=== PATIENT | male | born 1940 | race Caucasian/White ===

== ENCOUNTER → 2017-10-16 13:01 | Outpatient (CLI) | payer MEDICARE, OTHER, SELFPAY ==
[2017-10-16 13:50] LABS: Add Manual Diff / Slide Review NO; Basophils Percent Auto 0.5 % (0-2); Eosinophils Percent Auto 3.4 % (2-4); Hemoglobin 13.9 g/dL (13.5-17.5); Lymphocytes Percent Auto 33.1 % (25-40); Mean Corpuscular HGB Conc 33.8 % (30-36); Mean Corpuscular Hemoglobin 31.9 PG (26-34); Mean Corpuscular Volume 94.3 fL (80-100); Monocytes Percent Auto 7.9 % (3-14); Neutrophils Absolute Auto 3000 /uL (3000-5900); Neutrophils Percent Auto 55.1 % (50-75); Platelet Count 202 X10^3/uL (150-400); Red Blood Cell Count 4.35 X10^6/uL (4.5-5.9); Red Cell Distribution Width 13.9 % (11.6-14.8); White Blood Cell Count 5.5 X10^3/uL (4.5-11.0)
[2017-10-16 14:03] LABS: BUN Creatinine Ratio 22.2 (6-22); Calcium 9.5 mg/dL (8.4-10.2); Estimated Glomerular Filt Rate > 60.0 mL/min (>60); Glucose 79 mg/dL (80-110); HEMOLYSIS < 15 (0-50); Potassium 4.7 mmol/L (3.4-5.1); Sodium 142 mmol/L (137-145)
== END ==
PROVIDERS: PCP Internal Medicine; Visit Provider Orthopaedic Surgery
DX: M25.561 Pain in right knee (principal); Z96.651 Presence of right artificial knee joint
CPT/HCPCS: 36415; 80048; 85025

== ENCOUNTER 2017-11-04 13:31 | Day surgery (SDC) | payer MEDICARE, OTHER, SELFPAY ==
[2017-10-25 14:06] VITALS: BMI 36.1
[2017-11-04] VITALS (17 sets, daily range): BP systolic 108–162; BP diastolic 61–98; PULSE 89–142; RESP 12–20; TEMP 35.9–36.7; O2SAT 91–96; BMI 36.1
[2017-11-04] MEDS: LACTATED RINGERS 1,000 ML 42 ML IV ×2 (14:05→15:58)
--- NOTE | 2017-11-04 15:02 | PM.PREOP ---
Pre-operative Note Interval Note Pre-op Check: History & Physical Reviewed by Physician and Changes
[2017-11-04] MEDS: CEFAZOLIN 2 GM/100 ML FROZ.PIGGY IV ×2 (15:07→22:59)
--- NOTE | 2017-11-04 15:46 | SUR.OPER ---
Supine on padded OR bed. Pillow under head, arms secured on padded armboards <90 degree abduction. Safety belt across torso. Non-operative leg secured with tape over blanket over lower leg. Operative leg on padded OR Bed. F
[2017-11-04] MEDS: BUPIVACAINE 0.5% W/ EPI (PF) 30 ML VIAL INJ (15:59)
[2017-11-04] MEDS: fentaNYL 100 MCG/2 ML INJ 50 MCG IV ×2 (16:25→16:41)
[2017-11-04] MEDS: hydrOXYzine 50 MG/ML INJ 25 MG IM (16:27)
--- NOTE | 2017-11-04 16:27 | PM.OP.1 ---
Operative Date/Time/Diagnoses - Date of procedure: 11/04/17 Time of procedure: 16:27 Pre-op diagnosis: Patellar maltracking, right total knee Post-op diagnosis: same Procedure & Clinicians Procedure: Proximal patellar realignment Same procedure as scheduled: Yes Indications: The patient is a 77-year-old gentleman who previously has undergone a right total knee replacement. He has had ongoing discomfort and is unsatisfied with the outcome of the knee replacement. Radiographs reveal excessive lateral tilt of the patella. He has requested open lateral release and medial reefing after extensive discussion of the risks benefits and alternatives. He also has failed all non operative management attempts. Risks discussed included but were not limited to: Failure to improve, infection, nerve damage, stiffness, deep venous thrombosis, pulmonary embolism, stroke, myocardial infarction, permanent paralysis and . Surgeon: Jp Noland Photogrammetric Technician: Marlena Vega Click Yes if Unassisted: No Anesthesia Type: General and Local Operative Notes Findings: Improvement in patellar tracking after the above-noted procedure. Closure Type: primary Specimen(s): other (Fluid was sent for culture and Gram stain.) Implants & Drains: None. Estimated Blood Loss (mL): 10 Blood products transfused: none Tourniquet time (min): 19 Procedure in detail: The patient was seen in the preoperative area were reconfirmed the right knee was the operative site and this was marked with my initials. He received preoperative antibiotics and was taken to the operating room and placed on the operating room table in a supine position where he underwent a general anesthetic. A tourniquet was placed about the proximal right thigh and the right leg was prepared from the toes to the tourniquet with ChloraPrep in the usual fashion and draped through sterile drapes. The leg was elevated and exsanguinated with an Esmarch bandage and the tourniquet inflated to 250 mm of mercury. Pre-existing total knee incision was reopened. This was carried to the capsule which was incised in a medial parapatellar arthrotomy. Previous sutures were removed when encountered. Approximately 5 mL of clear straw-colored fluid was extracted from the knee and sent for culture and Gram stain. The total knee replacement was inspected and appeared to be in good condition with no surface wear and no evidence of loosening. The lateral patellar retinaculum was released with the Bovie electrocautery from the joint line to the superior pole of the patella with care being taken not to extend this into the vastus lateralis. The vastus medialis obliquus was then advanced approximately a cm over the quadriceps tendon and patella and sutured into position with #1 Tycron. This appeared to improve the patellar tilt. Patellar tracking was normal. The remainder of the medial parapatellar arthrotomy was closed in standard fashion with #1 Tycron. The subcutaneous tissues were then closed with interrupted 3 O Vicryl. The skin was closed with a running 3 over the lock suture and Steri-Strips. A total of 30 mL of 0.5% Marcaine with epinephrine was injected into the capsule and skin for postoperative pain control. Dressings of an Aquacel Ag dressing and an Bo wrap were applied. Patient was allowed to awaken from anesthesia and transported to the recovery room in good condition having tolerated the procedure well. The tourniquet was deflated during closure and hemostasis obtained with electrocautery. Total tourniquet time was 19 min. Complications: none Condition: stable Disposition: PACU Plan for aftercare: The patient will be allowed to weightbear as tolerated and do quadriceps and hamstrings rehab with physical therapy. He will be discharged later today provided pain control is satisfactory.
[2017-11-04] MEDS: KETOROLAC 30 MG/ML VIAL IV (16:31)
--- NOTE | 2017-11-04 17:29 | SUR.PHASEI ---
Patient transported to room 204. Per Dr Noland, pt does not need telemetry monitoring while on inpatient floor. Kierra BARRIGA notified.
[2017-11-04] MEDS: HYDROCODONE/ACET 10/325 TABLET 2 TAB PO ×2 (18:16→21:18)
[2017-11-04] MEDS: HYDROMORPHONE 2 MG INJ 1 MG IV (18:59)
[2017-11-04] MEDS: ATORVASTATIN 20 MG TABLET 80 MG PO (21:17)
[2017-11-04] MEDS: TRAMADOL 50 MG TABLET PO (21:18)
[2017-11-04] MEDS: PRAMIPEXOLE 0.25 MG TABLET PO (21:18)
[2017-11-04] MEDS: ZOLPIDEM 5 MG TABLET 10 MG PO (21:18)
[2017-11-04] MEDS: clonazePAM 0.5 MG TABLET PO (21:18)
[2017-11-05 04:40] VITALS: BP 106/65; PULSE 71; RESP 16; TEMP 36.4; O2SAT 92
[2017-11-05] MEDS: HYDROCODONE/ACET 5/325 TABLET 1 TAB PO (04:52)
[2017-11-05] MEDS: CEFAZOLIN 2 GM/100 ML FROZ.PIGGY IV (06:40)
[2017-11-05 07:15] VITALS: BP 119/68; PULSE 66; RESP 17; TEMP 36.9; O2SAT 94
[2017-11-05] MEDS: TRAMADOL 50 MG TABLET PO (08:58)
[2017-11-05] MEDS: HYDROCODONE/ACET 10/325 TABLET 2 TAB PO ×2 (08:58→13:16)
[2017-11-05] MEDS: PREGABALIN 50 MG CAPSULE 100 MG PO (09:03)
[2017-11-05] MEDS: PROPRANOLOL ER 60 MG CAPSULE PO (09:03)
[2017-11-05] MEDS: CITALOPRAM 20 MG TABLET 40 MG PO (09:03)
[2017-11-05] MEDS: PRAMIPEXOLE 0.25 MG TABLET PO (09:03)
[2017-11-05] MEDS: CELECOXIB 200 MG CAPSULE PO (09:03)
--- NOTE | 2017-11-05 10:52 | PC.NURSE ---
Addendum entered by Aundrea Betancourt R.N. 11/05/17 14:24: pt just discharged to home. iv taken out and cath tip intact. out to car with cleaner and presser and to drive pt home. Original Note: Addendum entered by Aundrea Betancourt R.N. 11/05/17 13:32: Pt worked with p.t. and tolerated well, he was also able to tolerate doing stairs. He will be discharged home around 1400. Medicated with 2 [place] 10/325mg. Visiting with his now. Original Note: Pt medicated with his routine vicodin and tramadol. He will work with P.T. soon. Voided 275cc of yellow urine. He is comfortable at this time.
--- NOTE | 2017-11-05 14:15 | P.DS_ITS ---
History of Present Illness Date Patient Seen: 11/05/17 Time Patient Seen: 07:13 Chief complaint: *[id number] Narrative: POD #1 status post right proximal patellar realignment with Dr. Noland. He had increased pain yesterday that was not well controlled and stayed overnight. He is feeling much better this morning. No complaints. Discharge Providers Primary care physician: Alfredito Huggins MD Consults: 11/05/17 12:58 Consult to Physical Therapy Evaluate & Treat Comment: Physician Instructions: Evaluate and Treat Discharge provider: Bernice Sahu PA-C Summary Discharge Diagnosis: Status post right proximal patellar realignment Hospital Course: The patient admitted for proximal patellar realignment, and he consented to procedure. Hospital course unremarkable. On postop day 1. He is feeling well and wants go home. His pain was well controlled with Vicodin and tramadol. On day of discharge dressing was CDI, calves soft, compressible, and nontender bilaterally. Exam Vital Signs (past 8 hours): Vital Signs - 8 hr 3 11/05/17 07:15 Temperature 98.4 F Pulse Rate 66 Respiratory Rate 17 Blood Pressure 119/68 Pulse Oximetry 94 Pulse Oximetry 94 Oxygen Delivery Method Room Air Narrative Exam Narrative: Patient lying in bed in no acute distress. He is alert and oriented x3. Dressing on right knee is CDI. Bo wrap in place. Calves are soft, compressible, nontender bilaterally. Sensation intact to light touch throughout bilateral lower extremities. Pulses are symmetrical. Discharge Plan Discharge Plan Patient Disposition: Home, Self-Care Discharge comment: DC home this afternoon after physical therapy Discharge Med Rec/Prescriptions Prescriptions: Continue citalopram 20 MG tablet 40 mg PO QDAY Qty: 0 RF: 0 clonazepam 1 MG tablet 0.5 mg PO DAILY Qty: 0 RF: 0 hydrocodone-acetaminophen 10 MG/325 MG tablet 1 tab PO QID Qty: 0 RF: 0 tramadol 50 MG tablet 50 mg PO TID Qty: 0 RF: 0 propranolol 60 MG capsule,extended release 24 hr 60 mg PO QDAY Qty: 30 RF: 11 celecoxib [Celebrex] 200 mg Capsule 200 mg PO DAILY RF: 0 atorvastatin 80 mg Tablet 80 mg PO DAILY RF: 0 pramipexole 0.25 mg Tablet 0.25 mg PO BID RF: 0 rivaroxaban [Xarelto] 20 mg Tablet 20 mg PO QAM RF: 0 pregabalin [Lyrica] 100 MG capsule 100 mg PO DAILY RF: 0 zolpidem 12.5 mg PO BEDTIME RF: 0 Follow up/Referrals: Jp Noland MD [Physician] - (Please follow up in 10-14 days with PAAndra) Discharge Orders: Discharge (Order); Ordered 11/05/17 Ordered By: Bernice Sahu Provider Discharge Instructions Diet: Diet as Tolerated Activity: Quadriceps and hamstring strengthening with physical therapy Wound Care Report to your healthcare provider any signs of infection, such as:: chills, fever and increased pain Dressing: Please leave dressing in place until appointment Visit Report/Discharge Packet Stand Alone Forms: Surgery Discharge Discharge Data Primary Care Provider: Alfredito Huggins Attending Provider: Jp Noland
--- NOTE | 2017-11-05 15:19 | PT.IIE ---
Current Diagnoses Unspecified internal derangement of right knee (11/04/17) Presence of right artificial knee joint (11/04/17) Surgery Performed Operation Date: 11/04/17 15:15 Actual Procedures p Open Proximal Realignment of Right Patella(Right) - Jp Noland MD Surgical History (Last Updated 10/25/17 @ 14:29 by Jennifer Avila, RN) H/O hernia repair (Acute) H/O umbilical hernia repair (Acute) H/O vasectomy (Acute) History of inguinal hernia repair, bilateral (Acute) History of lumbar fusion (Acute) History of meniscectomy of left knee (Acute) History of tonsillectomy (Acute) Hx of total knee arthroplasty (Acute) S/P epidural steroid injection (Acute) Medical History (Last Updated 10/25/17 @ 14:29 by Jennifer Avila, RN) Cataract (lens) fragments in eye following cataract surgery, bilateral (Acute) Chronic migraine (Acute) DJD (degenerative joint disease), cervical (Acute) History of UTI (Acute) Panic attacks (Acute) Pectus excavatum (Acute) Personal history of cardiac arrhythmia (Acute) Right leg DVT (Acute) Shingles (Acute) Skin cancer (Acute) Physical Therapy Inpatient Evaluation/Re-Eval M1 PT/OT-IP Prior Functional Status Start: 11/05/17 15:10 Freq: NEEDED Status: Active Protocol: Document 11/05/17 13:30 RS (Rec: 11/05/17 15:18 RS [id number]) Medical Review Prior Functional Status Medical History Reviewed Yes Diet/Fluid Consistency Regular Communication no known deficits. Mobility and Gait independent without device, does have a cane, crutches, FWW, and 4WW at home if needed . Social History Household Members spouse Living Arrangements House Number of Floors (Floors) One Floor Number of Stairs To Enter/Railing? 4STE w/ bilat rails Home Environment Standard Height Toilet Walk in Shower Home Equipment Front Wheel Walker Four Wheel Walker Straight Cane Crutches Grab Bars In Shower Employment Status Retired M2 PT-IP Current Condition Start: 11/05/17 15:10 Freq: NEEDED Status: Active Protocol: Document 11/05/17 13:30 RS (Rec: 11/05/17 15:18 RS [id number]) Physical Therapy Current Condition Current Condition Evaluation Date 11/05/17 Treatment Diagnosis s/p surgical patella realignment Onset Date 11/04/17 Weight Bearing Status Weight Bearing Status Weight Bear as Tolerated M3 PT-IP Subjective Start: 11/05/17 15:10 Freq: NEEDED Status: Active Protocol: Document 11/05/17 13:30 RS (Rec: 11/05/17 15:18 RS [id number]) Subjective Physical Therapy Visit Type Type Initial Evaluation Visit Start Time 13:01 Visit Stop Time 13:30 Total Visit Minutes 29 Physical Therapy Visit Comments Patient Comments Pt reports doing well, excited to go home. Patient/Caregiver Goals go home today Therapy Pain Assessment Pain When Pain Assessed At Rest Pain Present Pain Present Denied Pain M4 PT-IP Mobility and Gait Start: 11/05/17 15:10 Freq: NEEDED Status: Active Protocol: Document 11/05/17 13:30 RS (Rec: 11/05/17 15:18 RS [id number]) PT-Bed Mobility Assessment Supine to Sit Supine to Sit Independent Sit to Supine Sit to Supine Independent Scooting Scooting to Edge of Bed Independent PT-Transfer Assessment Sit to and From Stand Sit to and from Stand Independent Use of Upper Extremities Equipment Transfer Assistive Device Front Wheeled Walker Transfers Transfer Destination Bed Chair Transfer Technique Stand Step Pivot Transfer Ability Level of Assist Independent Use of Upper Extremities Gait Assessment Gait Gait Assistance Required: Independent Distance (Feet) (feet) 100 Assistive Devices Assistive Device Front Wheeled Walker Gait Deviations General Gait Pattern Within Normal Limits Antalgic Factors Limiting Gait Function Factors Limiting Gait Function Limited Range of Motion Pain Stair Climbing Assessment Evaluation Level of Assist On Stairs Standby Assistance 1 Person Assistance Devices Stair Climbing Assistive Devices Front Wheel Walker Technique/Endurance Stair Climbing Direction Ascend and Descend Stair Climbing Technique Step to Step Number of Steps Climbed 4 Query Text: PT-Balance Assessment Sitting Balance and Reactions Static Sitting Balance Ability Normal Dynamic Sitting Balance Ability Normal Standing Balance and Reactions Static Standing Balance Ability Normal Dynamic Standing Balance Ability Normal Device Used FWW M5 PT-IP Objective Assessments Start: 11/05/17 15:10 Freq: NEEDED Status: Active Protocol: Document 11/05/17 13:30 RS (Rec: 11/05/17 15:18 RS [id number]) Orientation Orientation/Cognition Level of Alertness Alert Orientation Name Age Birthday Month Date Year Day of Week Place Situation Language Function Ability No Deficits Noted Safety Awareness Understands Safety Issues Memory Description No Deficits Noted Gross Range of Motion Upper Extremity ROM Assessment Within Functional Limits Strength Upper Extremity Strength Assessment Within Functional Limits M6 PT-IP Treatment Start: 11/05/17 15:10 Freq: NEEDED Status: Active Protocol: Document 11/05/17 13:30 RS (Rec: 11/05/17 15:18 RS [id number]) Physical Therapy Treatment Education Education Provided Precautions Weight Bearing Status Post-Op Packet Safety M7 PT-IP Assessment and Plan Start: 11/05/17 15:10 Freq: NEEDED Status: Active Protocol: Document 11/05/17 13:30 RS (Rec: 11/05/17 15:18 RS [id number]) PT Summary Assessment and Plan Potential Rehabilitation Potential Good Status of Condition at Evaluation Stable Summary Impairments ROM Strength Progress Towards Goals Safe For Discharge Assessment Summary Pt is modified independent with all mobility using a FWW. Pt is safe to discharge directly home, however, recommend pt participate in OPPT once ready. Pt in agreement with this plan. Goals Bed Mobility Goal Independent Transfer Goal Independent Front Wheeled Walker Gait Goal Independent Front Wheel Walker Gait Distance 100 Days to Meet Goals 1 Frequency of Treatment Frequency Of Treatment Once a Day Treatment Plan Other Recommendations and Next Treatment no further PT needed. Focus Recommendations To Nursing Amount of Assist Needed Independent Discharge Recommendations PT Discharge Recommendations Home with Assistance Outpatient PT Provider Visit Care Team Role Provider Type Alfredito Huggins MD Primary Care Provider Physician Specialty: Internal Medicine Jp Noland MD Attending Provider Physician Specialty: Orthopedic Surgery
== END 2017-11-05 14:23 | disposition home or self-care (01) ==
LOC: OR 13:32 → AC 13:34
PROVIDERS: PCP Internal Medicine; Visit Provider Orthopaedic Surgery
PROC: (CPT 27446; principal; 2017-11-04 15:15)
DX: M23.92 Unspecified internal derangement of left knee (principal); Z86.718 Personal history of other venous thrombosis and embolism; M19.91 Primary osteoarthritis, unspecified site; F41.9 Anxiety disorder, unspecified; I49.9 Cardiac arrhythmia, unspecified; E78.5 Hyperlipidemia, unspecified; I10 Essential (primary) hypertension; W18.30XA Fall on same level, unspecified, initial encounter
CPT/HCPCS: 27422; 87070; 87075; 87205; 93005; 97161; J0690; J1170; J1885; J3010; J3410

== ENCOUNTER 2018-08-17 02:58 | Emergency (ER) | payer MEDICARE, OTHER, SELFPAY ==
[2017-11-04 19:05] VITALS: BMI 36.1
[2018-08-17 03:05] VITALS: BP 172/90; PULSE 82; RESP 18; TEMP 37.1; O2SAT 96; BMI 32.2
--- NOTE | 2018-08-17 03:09 | DI.RAD.S_ITS ---
PROCEDURE: XR KNEE LT 3V INDICATIONS: fall hx of replacement with swelling TECHNIQUE: 3 views of the knee were acquired. COMPARISON: [facility], , KNEE 3V RIGHT, 12/14/2016, 14:15. FINDINGS: Bones: No fractures or dislocations. The arthroplasty components are in place. Hardware appears intact and there is no periprosthetic lucency. Lateral subluxation of the patellar component, chronic. No suspicious bony lesions. Soft tissues: No joint effusion. No suspicious soft tissue calcifications. Moderate subcutaneous edematous change. IMPRESSION: 1. No fractures or joint effusion. 2. Chronic lateral subluxation of the patellar component. 3. No evidence of hardware loosening. Dictated by: Ramya Harmon M.D. on 08/17/2018 at 8:16 Approved by: Ramya Harmon M.D. on 08/17/2018 at 8:19
--- NOTE | 2018-08-17 03:09 | ED.LOWEXIN ---
HPI - Extremity Injury (Lower) General Chief Complaint: Extremity Injury, Lower Stated Complaint: fall, hurt left knee Time Seen by Provider: 08/17/18 03:06 Source: patient Mode of arrival: ambulatory Limitations: no limitations History of Present Illness HPI Narrative: Patient is a 78-year-old male with a prior left total knee arthroplasty. He is also on Xarelto for prior history of a DVT. Had a mechanical fall within the past 24 hr where he landed on his left knee. He did not hit his head. No loss of conscious. No other injuries from the fall. He came in because of swelling to his left knee and a small abrasion over his left knee. Related Data Home Medications Medication Instructions Recorded Confirmed citalopram 40 mg PO QDAY #0 10/03/12 11/04/17 clonazepam 0.5 mg PO DAILY #0 10/03/12 11/04/17 hydrocodone-acetaminophen 1 tab PO QID #0 12/14/16 11/04/17 tramadol 50 mg PO TID #0 12/14/16 11/04/17 atorvastatin 80 mg PO DAILY 10/25/17 11/04/17 celecoxib [Celebrex] 200 mg PO DAILY 10/25/17 11/04/17 pramipexole 0.25 mg PO BID 10/25/17 11/04/17 pregabalin [Lyrica] 100 mg PO DAILY 10/25/17 11/04/17 rivaroxaban [Xarelto] 20 mg PO QAM 10/25/17 11/04/17 zolpidem 12.5 mg PO BEDTIME 11/04/17 11/04/17 Previous Rx's Medication Instructions Recorded propranolol 60 mg PO QDAY #30 cap 04/10/17 Allergies Allergy/AdvReac Type Severity Reaction Status Date / Time No Known Drug Allergies Allergy Unknown Unverified 09/04/17 12:09 [NO KNOWN DRUG ALLERGIES] oxycodone [OXYCODONE] AdvReac Severe MENTAL Unverified 09/04/17 12:09 CHANGES PER SON Review of Systems Constitutional Denies fever(s) and Denies frequent falls Cardiovascular Denies chest pain and Denies dyspnea Respiratory Denies dyspnea Gastrointestinal Gastrointestinal: Denies abdominal pain Musculoskeletal Comments: Left knee pain and swelling Integumentary/Breasts Comments: Abrasion of the left knee Neurologic Denies frequent falls Hematologic/Lymphatic Comments: On Ad[facility] Medical History Cataract (lens) fragments in eye following cataract surgery, bilateral (Acute) Chronic migraine (Acute) DJD (degenerative joint disease), cervical (Acute) History of UTI (Acute) Panic attacks (Acute) Pectus excavatum (Acute) Personal history of cardiac arrhythmia (Acute) Right leg DVT (Acute) Shingles (Acute) Skin cancer (Acute) Surgical History H/O hernia repair (Acute) H/O umbilical hernia repair (Acute) H/O vasectomy (Acute) History of inguinal hernia repair, bilateral (Acute) History of lumbar fusion (Acute) History of meniscectomy of left knee (Acute) History of tonsillectomy (Acute) Hx of total knee arthroplasty (Acute) S/P epidural steroid injection (Acute) Social History household members: spouse Social History household members: spouse Exam Initial Vital Signs Initial Vital Signs: Vital Signs Temperature 98.7 F 08/17/18 03:05 Pulse Rate 82 08/17/18 03:05 Respiratory Rate 18 08/17/18 03:05 Blood Pressure 172/90 H 08/17/18 03:05 Pulse Oximetry 96 08/17/18 03:05 Const General: cooperative, healthy appearing, comfortable, well developed, well groomed and No acute distress Orientation: alert, awake and oriented x3 Resp Effort & Inspection: normal respiratory effort Cardio Rate: regular rate Skin Other: 2 cm abrasion on the anterior aspect of left knee Neuro General: alert, awake and oriented x3 Extrem Other: Patient with circumferential swelling around the left knee. Limited range of motion secondary to the swelling. Left ankle unremarkable. Left hip unremarkable. Psych Appearance: grossly normal and well kempt Course Orders Ordered: ED Orders 08/17/18 03:09 XR knee LT 3V Stat Vital Signs - 8 hr 08/17/18 03:05 Temperature 98.7 F Pulse Rate 82 Respiratory Rate 18 Blood Pressure 172/90 H Pulse Oximetry 96 MDM - Extremity Injury (Lower) Imaging Data X-ray knee: Attestation: I personally reviewed and interpreted this imaging study as follows: My impression: Prosthesis in place, no fractures, MDM Narrative Medical decision making narrative: Patient is a small abrasion over the left knee. No bleeding. Has circumferential swelling to the left knee. No fractures on the x-ray. I did discuss with him that we could attempt to drain his knee however there would be risks of introducing an infection. I informed him that there is also the potential that all of the swelling is in the soft tissues are not in the knee joint itself. After this discussion the patient stated that he did not want to attempt the drainage. We did discuss the expected course to include worsening swelling and bruising that could potentially extend down his knee. He was instructed to continue his Xarelto. He was given return precautions. He expressed understanding and agreement with plan. Discharge Plan Departure Patient Disposition: Home Clinical Impression: Injury of knee, left Qualifiers: Encounter type: initial encounter Qualified Code(s): S89.92XA - Unspecified injury of left lower leg, initial encounter Instructions: How To Perform RICE (Rest, Ice, Compress, Elevate), DI for Knee Effusion Activity Restrictions/Additional Instructions: I recommend you continue all of her medications to include the Xarelto. Use the crutches as needed. I do recommend that you flex and extend your ankle and your knee like we discussed especially while flying. Return to the emergency department for any new or worsening symptoms Prescriptions: No Action citalopram 20 MG tablet 40 mg PO QDAY Qty: 0 RF: 0 clonazepam 1 MG tablet 0.5 mg PO DAILY Qty: 0 RF: 0 hydrocodone-acetaminophen 10 MG/325 MG tablet 1 tab PO QID Qty: 0 RF: 0 tramadol 50 MG tablet 50 mg PO TID Qty: 0 RF: 0 propranolol 60 MG capsule,extended release 24 hr 60 mg PO QDAY Qty: 30 RF: 11 celecoxib [Celebrex] 200 mg Capsule 200 mg PO DAILY RF: 0 atorvastatin 80 mg Tablet 80 mg PO DAILY RF: 0 pramipexole 0.25 mg Tablet 0.25 mg PO BID RF: 0 rivaroxaban [Xarelto] 20 mg Tablet 20 mg PO QAM RF: 0 pregabalin [Lyrica] 100 MG capsule 100 mg PO DAILY RF: 0 zolpidem 12.5 mg PO BEDTIME RF: 0 Referrals: Alfredito Huggins MD [Primary Care Provider] -
[2018-08-17 05:17] VITALS: BP 152/71; PULSE 66; RESP 18; O2SAT 98
== END 2018-08-17 05:15 | disposition home or self-care (01) ==
PROVIDERS: Emergency Provider Emergency Medicine; PCP Internal Medicine
DX: S89.92XA Unspecified injury of left lower leg, initial encounter (principal); W19.XXXA Unspecified fall, initial encounter
CPT/HCPCS: 73562; 99282; 99283